=== PATIENT | female | born 1985 | race Caucasian/White ===

== ENCOUNTER 2018-07-27 10:26 | Emergency (ER) | payer OTHER, SELFPAY ==
[~2018-07-27] VITALS: Ht 157.5 cm; Wt 73.5 kg
[2018-07-27 10:49] LABS: BASOPHILS # (AUTO) 0.05 x10^3/uL (0-0.1); BASOPHILS % (AUTO) 1 % (0-1); EOSINOPHILS # (AUTO) 0.15 x10^3/uL (0-0.4); EOSINOPHILS % (AUTO) 2 % (1-7); LYMPHOCYTES % (AUTO) 20 % (22-44); MD NO; MEAN CORPUSCULAR VOLUME 88.3 fL (80-100); MEAN PLATELET VOLUME 7.2 fL (7.4-10.4); MONOCYTES # (AUTO) 0.59 x10^3/uL (0.2-0.8); MONOCYTES % (AUTO) 7 % (2-9); NEUTROPHILS # (AUTO) 6.06 x10^3/uL (1.8-6.8); NEUTROPHILS % (AUTO) 71 % (42-75); PLATELET COUNT 297 x10^3/uL (130-400); RED CELL DISTRIBUTION WIDTH 12.9 % (9.6-15.2)
[2018-07-27 11:00] LABS: ALBUMIN 4.2 g/dL (3.4-5.0); ANION GAP 5 mmol/L (5-15); CALCIUM 8.6 mg/dL (8.5-10.1); CHLORIDE 106 mmol/L (98-107)
--- NOTE | 2018-07-27 11:05 | NUR ---
9 WEEKS WITH SPOTTING AND PELVIC PRESSURE. DOES NOT FEEL WELL. COUGH AND VOMITING UP SPUTUM
[2018-07-27 11:18] LABS: CREATININE 0.68 mg/dL (0.55-1.02)
--- NOTE | 2018-07-27 11:45 | NUR ---
TO ULTRASOUND VIA [facility]
[2018-07-27 12:29] VITALS: BP 106/70
--- NOTE | 2018-07-27 13:12 | NUR ---
MD RE-EVAL AND DISCHARGE INSTRUCTIONS GIVEN. AMBULATED TO DISCHARGE DESK WITHOUT ASSISTANCE, NO DISTRESS.
== END 2018-07-27 13:18 | disposition home or self-care (01) ==
LOC: ED 13:12
DX: O20.0 Threatened abortion (principal)
CPT/HCPCS: 36415; 76801; 80048; 82040; 84702; 85025; 86901; 99284